=== PATIENT | male | born 1990 | race Caucasian/White ===

== ENCOUNTER 2023-12-02 10:47 | Outpatient (CLI) | payer BC, SELFPAY | END 2023-12-02 10:48 | disposition home or self-care (01) | PROVIDERS: PCP Nurse Practitioner Family; Visit Provider Nurse Practitioner Family | DX: Z13.220 Encounter for screening for lipoid disorders (principal); R03.0 Elevated blood-pressure reading, without diagnosis of hypertension | CPT/HCPCS: 80053; 80061 ==

== ENCOUNTER 2024-02-21 09:04 | Outpatient (CLI) | payer BC, SELFPAY ==
--- NOTE | 2024-02-21 10:55 | W.ANESCHARGE ---
Anesthesia Charges Start Date/Time Anesthesia Start Date: 02/21/24 Anesthesia Start Time: 10:15 Stop Date/Time Anesthesia Stop Date: 02/21/24 Anesthesia Stop Time: 10:50
--- NOTE | 2024-02-21 11:17 | W.ANESCHARGE ---
Anesthesia Charges Start Date/Time Anesthesia Start Date: 02/21/24 Anesthesia Start Time: 10:15 Stop Date/Time Anesthesia Stop Date: 02/21/24 Anesthesia Stop Time: 10:50
== END 2024-02-21 09:05 | disposition home or self-care (01) ==
LOC: OP CLINIC 09:04
PROVIDERS: PCP Nurse Practitioner Family; Visit Provider Surgery
DX: R93.3 Abnormal findings on diagnostic imaging of other parts of digestive tract (principal); K63.89 Other specified diseases of intestine; K62.1 Rectal polyp
CPT/HCPCS: 00811; 45380; 45385; 88305; J2704